=== PATIENT | male | born 1990 | race Caucasian/White ===

== ENCOUNTER 2021-12-17 15:13 | Emergency (ER) | payer MEDICARE, OTHER ==
[~2021-12-17] VITALS: Ht 180.3 cm; Wt 74.0 kg
[2021-12-17 15:30] VITALS: BP 140/77
[2021-12-17] MEDS ORDERED: OLANZapine 5 MG ODT (ZyPREXA ZYDIS) PO STA (15:34)
[2021-12-17] MEDS ORDERED: NS IV 1000 ML 1,000 ML IV SCH (15:45)
[2021-12-17 15:48] LABS: BILIRUBIN,URINE NEGATIVE (NEGATIVE); CLARITY,URINE CLEAR; COLOR,URINE YELLOW; GLUCOSE, URINE (UA) NEGATIVE (NEGATIVE); KETONES,URINE NEGATIVE (NEGATIVE); LEUKOCYTE ESTERASE ,URINE NEGATIVE (NEGATIVE); NITRITE,URINE NEGATIVE (NEGATIVE); PROTEIN,URINE NEGATIVE (NEGATIVE)
[2021-12-17 15:49] LABS: HEMATOCRIT 39 % (40-54); HEMOGLOBIN 12.7 g/dL (13.3-17.7); MEAN CORPUSCULAR HEMOGLOBIN 29 pg (25-34); MEAN CORPUSCULAR HGB CONC 32 g/dL (32-36); MEAN CORPUSCULAR VOLUME 90 fL (80-99); WHITE BLOOD COUNT 7.1 10^3/uL (4.3-11.0)
[2021-12-17 15:50] LABS: BASOPHILS % (AUTO) 0 % (0-10); EOSINOPHILS # (AUTO) 0.2 10^3/uL (0.0-0.3); EOSINOPHILS % (AUTO) 2 % (0-10); LYMPHOCYTES % (AUTO) 28 % (12-44); MEAN PLATELET VOLUME 9.9 fL (9.0-12.2); MONOCYTES # (AUTO) 0.4 X 10^3 (0.0-1.0); MONOCYTES % (AUTO) 6 % (0-12); NEUTROPHILS # (AUTO) 4.5 X 10^3 (1.8-7.8); NEUTROPHILS % (AUTO) 63 % (42-75); PLATELET COUNT 248 10^3/uL (130-400)
[2021-12-17 15:54] LABS: BACTERIA,URINE TRACE /HPF; SQUAMOUS EPITHELIAL CELL,UR RARE /HPF; WBC,URINE 0-2 /HPF
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
[2021-12-17 15:59] LABS: AMPHETAMINE SCREEN, URINE POSITIVE (NEGATIVE); BARBITURATE SCREEN URINE NEGATIVE (NEGATIVE); BENZODIAZEPINES SCREEN URINE NEGATIVE (NEGATIVE); CANNABINOID SCREEN, URINE NEGATIVE (NEGATIVE); COCAINE SCREEN URINE NEGATIVE (NEGATIVE); METHADONE STAT NEGATIVE (NEGATIVE); OPIATE SCREEN URINE NEGATIVE (NEGATIVE); OXYCODONE STAT NEGATIVE (NEGATIVE); PROPOXYPHENE STAT NEGATIVE (NEGATIVE); TRICYCLIC ANTIDEPRESSANTS SCRE NEGATIVE (NEGATIVE)
[2021-12-17 16:10] LABS: CHLORIDE 108 MMOL/L (98-107); POTASSIUM 3.3 MMOL/L (3.6-5.0); SODIUM 143 MMOL/L (135-145)
[2021-12-17 16:11] LABS: ACETAMINOPHEN < 10 UG/ML (10-30); ALANINE AMINOTRANSFERASE 14 U/L (0-55); ALKALINE PHOSPHATASE 116 U/L (40-136); BILIRUBIN,TOTAL < 0.2 MG/DL (0.1-1.0); BUN/CREATININE RATIO 25; CALCIUM 9.2 MG/DL (8.5-10.1); CARBON DIOXIDE 21 MMOL/L (21-32); CREATININE SERUM 0.69 MG/DL (0.60-1.30); GFR ESTIMATED 125; GLUCOSE 107 MG/DL (70-105); SALICYLATE 0.4 MG/DL (5.0-20.0); TOTAL PROTEIN 7.7 GM/DL (6.4-8.2)
== END 2021-12-17 19:52 | disposition home or self-care (01) ==
LOC: ER FS 15:15
DX: R45.851 Suicidal ideations (principal); F15.10 Other stimulant abuse, uncomplicated; G62.89 Other specified polyneuropathies; Z87.820 Personal history of traumatic brain injury; Z79.899 Other long term (current) drug therapy; Z20.822 Contact with and (suspected) exposure to COVID-19
CPT/HCPCS: 36415; 80053; 80306; 81000; 85025; 87636; 99284; G0480 ×3; 80320; 80329

== ENCOUNTER 2021-12-18 00:35 | Emergency (ER) | payer MEDICARE ==
[~2021-12-18] VITALS: Ht 180 cm; Wt 79.0 kg
[2021-12-18 01:06] LABS: BASOPHILS # (AUTO) 0.1 10^3/uL (0.0-0.1); BASOPHILS % (AUTO) 1 % (0-10); EOSINOPHILS # (AUTO) 0.2 10^3/uL (0.0-0.3); EOSINOPHILS % (AUTO) 3 % (0-10); HEMATOCRIT 36 % (40-54); HEMOGLOBIN 11.7 g/dL (13.3-17.7); LYMPHOCYTES # (AUTO) 2.6 10^3/uL (1.0-4.0); LYMPHOCYTES % (AUTO) 31 % (12-44); MEAN CORPUSCULAR HEMOGLOBIN 29 pg (25-34); MEAN CORPUSCULAR HGB CONC 33 g/dL (32-36); MEAN CORPUSCULAR VOLUME 89 fL (80-99); MEAN PLATELET VOLUME 9.1 fL (9.0-12.2); MONOCYTES # (AUTO) 0.6 10^3/uL (0.0-1.0); MONOCYTES % (AUTO) 7 % (0-12); NEUTROPHILS # (AUTO) 4.9 10^3/uL (1.8-7.8); NEUTROPHILS % (AUTO) 59 % (42-75); PLATELET COUNT 315 10^3/uL (130-400); WHITE BLOOD COUNT 8.4 10^3/uL (4.3-11.0)
[2021-12-18] MEDS ORDERED: HYDROmorphone 2 MG/ML VIAL (DILAUDID) IM STA ×2 (01:06→01:54)
[2021-12-18] MEDS ORDERED: HALOPERIDOL 5 MG/ML (HALDOL) VIAL IM STA (01:06)
[2021-12-18] MEDS ORDERED: LORazepam INJ 2 MG/ML (ATIVAN) VIAL IM STA ×2 (01:06→01:54)
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
[2021-12-18 01:26] LABS: BILIRUBIN,URINE NEGATIVE (NEGATIVE); CLARITY,URINE CLEAR; COLOR,URINE YELLOW; GLUCOSE, URINE (UA) NEGATIVE (NEGATIVE); KETONES,URINE NEGATIVE (NEGATIVE); LEUKOCYTE ESTERASE ,URINE NEGATIVE (NEGATIVE); NITRITE,URINE NEGATIVE (NEGATIVE); PROTEIN,URINE NEGATIVE (NEGATIVE)
[2021-12-18 01:26] LABS: ALANINE AMINOTRANSFERASE 15 U/L (0-55); ALBUMIN 3.8 GM/DL (3.2-4.5); ALKALINE PHOSPHATASE 114 U/L (40-136); BILIRUBIN,TOTAL < 0.2 MG/DL (0.1-1.0); BUN/CREATININE RATIO 18; CALCIUM 9.1 MG/DL (8.5-10.1); CARBON DIOXIDE 21 MMOL/L (21-32); CHLORIDE 110 MMOL/L (98-107); CREATININE SERUM 0.74 MG/DL (0.60-1.30); GFR ESTIMATED 123; GLUCOSE 115 MG/DL (70-105); POTASSIUM 3.1 MMOL/L (3.6-5.0); SALICYLATE < 0.3 MG/DL (5.0-20.0); SODIUM 144 MMOL/L (135-145); TOTAL PROTEIN 7.1 GM/DL (6.4-8.2)
[2021-12-18 01:27] LABS: ACETAMINOPHEN 66 UG/ML (10-30)
[2021-12-18 01:32] LABS: RBC,URINE 0-2 /HPF
[2021-12-18 01:33] LABS: BACTERIA,URINE NEGATIVE /HPF
[2021-12-18 01:38] LABS: AMPHETAMINE SCREEN, URINE POSITIVE (NEGATIVE); BARBITURATE SCREEN URINE NEGATIVE (NEGATIVE); BENZODIAZEPINES SCREEN URINE NEGATIVE (NEGATIVE); CANNABINOID SCREEN, URINE NEGATIVE (NEGATIVE); COCAINE SCREEN URINE NEGATIVE (NEGATIVE); METHADONE STAT NEGATIVE (NEGATIVE); OPIATE SCREEN URINE NEGATIVE (NEGATIVE); OXYCODONE STAT NEGATIVE (NEGATIVE); PROPOXYPHENE STAT NEGATIVE (NEGATIVE); TRICYCLIC ANTIDEPRESSANTS SCRE NEGATIVE (NEGATIVE)
[2021-12-18] MEDS ORDERED: OLANZapine 5 MG ODT (ZyPREXA ZYDIS) PO PRN (07:30)
[2021-12-18] MEDS ORDERED: LORazepam 0.5 MG (ATIVAN) TABLET PO PRN ×2 (07:30→12:30)
[2021-12-18] MEDS ORDERED: cloNIDine 0.1 MG (CATAPRES) TAB PO STA (12:24)
[2021-12-18] MEDS ORDERED: GABAPENTIN 100 MG (NEURONTIN) CAP PO STA (12:24)
[2021-12-18] MEDS ORDERED: HALOPERIDOL 5 MG/ML (HALDOL) VIAL IM ONE (14:45)
[2021-12-18] MEDS ORDERED: diphenhydrAMINE 50 MG/ML INJ (BENADRYL) IM ONE (14:45)
[2021-12-18] MEDS ORDERED: ERYTHROMYCIN OPHTH OINT 1 GM (SINGLE USE) TUBE OP STA (18:13)
[2021-12-18] MEDS ORDERED: diphenhydrAMINE 50 MG/ML INJ (BENADRYL) IM PRN (22:45)
[2021-12-18] MEDS ORDERED: LORazepam INJ 2 MG/ML (ATIVAN) VIAL IM PRN (22:45)
[2021-12-19] MEDS ORDERED: ERYTHROMYCIN OPHTH OINT 1 GM (SINGLE USE) TUBE ONE (08:42)
[2021-12-19] MEDS ORDERED: LORazepam INJ 2 MG/ML (ATIVAN) VIAL IM STA (10:16)
[2021-12-19] MEDS ORDERED: diphenhydrAMINE 50 MG/ML INJ (BENADRYL) IM ONE (10:30)
[2021-12-19] MEDS ORDERED: DIPHENOXYLATE/ATROPINE 2.5MG/0.025MG (LOMOTIL) TAB PO SCH (17:45)
[2021-12-20] MEDS: GABAPENTIN 100 MG (NEURONTIN) CAP PO SCH ×2 (08:09→13:09)
[2021-12-20] MEDS ORDERED: cloNIDine 0.1 MG (CATAPRES) TAB PO SCH (09:00)
--- NOTE | 2021-12-20 09:42 | Diagnostic Imaging Report ---
History: Evaluation of the right foot TECHNIQUE: 3 views of the right foot COMPARISON: None FINDINGS: There is deformity of the 4th and 5th metatarsals. There is mild hallux valgus. Alignment otherwise appears normal. There are mild degenerative changes in the midfoot. No cortical erosions are seen. No acute fracture is identified. There is moderate soft tissue swelling about the right foot. IMPRESSION: 1. Moderate soft tissue swelling about the right foot. No cortical erosion is seen. 2. Mild posttraumatic deformity of the 4th and 5th metatarsals. Dictated by: Dictated on workstation # [id number]
[2021-12-20 13:30] VITALS: BP 136/81
== END 2021-12-20 13:30 ==
LOC: EDUNIT# 00:35 → ER FS 00:36
DX: F32.A Depression, unspecified (principal); R45.851 Suicidal ideations; F15.10 Other stimulant abuse, uncomplicated; G89.29 Other chronic pain; M79.661 Pain in right lower leg; H57.89 Other specified disorders of eye and adnexa; H57.11 Ocular pain, right eye; H54.7 Unspecified visual loss; Z87.828 Personal history of other (healed) physical injury and trauma; Z98.890 Other specified postprocedural states; W22.8XXA Striking against or struck by other objects, initial encounter; Y92.039 Unspecified place in apartment as the place of occurrence of the external cause
CPT/HCPCS: 36415; 80053; 80306; 81000; 85025; 99282; G0480 ×3; 73630; 80320; 80329; 86141

== ENCOUNTER 2022-01-19 21:53 | Emergency (ER) | payer MEDICARE ==
[~2022-01-19] VITALS: Ht 180 cm; Wt 68.0 kg
[2022-01-19] MEDS ORDERED: morphine INJ 10 MG/ML 1ML (SYR OR VIAL) IVP STA (22:06)
[2022-01-19] MEDS ORDERED: ONDANSETRON 4 MG (ZOFRAN) ORAL DISSOLVE TAB PO STA (22:06)
[2022-01-19] MEDS ORDERED: LIDOCAINE 1% INJ 50 ML (XYLOCAINE) VIAL ONE (22:12)
[2022-01-19] MEDS ORDERED: CEPHALEXIN 250 MG (KEFLEX) CAP PO SCH (22:15)
[2022-01-19] MEDS ORDERED: LIDOCAINE 1% INJ 20 ML VIAL INJ ONE (22:15)
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
[2022-01-19] MEDS ORDERED: CEPH500T PO (23:17)
[2022-01-19] MEDS ORDERED: ACHD5005 PO (23:17)
[2022-01-19 23:57] VITALS: BP 132/89
--- NOTE | 2022-01-20 06:28 | Diagnostic Imaging Report ---
Indication: Right foot pain 3 views of the right foot do not show any acute fracture or dislocation. IMPRESSION: No acute abnormality seen in the foot. There appears be an old healed fracture of the 5th metatarsal shaft. Dictated by: Dictated on workstation # [id number]
== END 2022-01-19 23:57 | disposition home or self-care (01) ==
LOC: EDUNIT# 21:53 → ER FS 21:55
DX: S01.412A Laceration without foreign body of left cheek and temporomandibular area, initial encounter (principal); S01.21XA Laceration without foreign body of nose, initial encounter; G89.29 Other chronic pain; M79.671 Pain in right foot; Z87.820 Personal history of traumatic brain injury; Z87.828 Personal history of other (healed) physical injury and trauma; Z98.890 Other specified postprocedural states; V86.06XA Driver of dirt bike or motor/cross bike injured in traffic accident, initial encounter
CPT/HCPCS: 12014; 73630

== ENCOUNTER 2022-02-01 17:43 | Emergency (ER) | payer MEDICARE ==
[~2022-02-01] VITALS: Ht 182.9 cm; Wt 66.2 kg
[~2022-02-01 17:43] MED LIST: ACHD5005 PO; CEPH500T PO
[2022-02-01 17:44] VITALS: BP 127/68
== END 2022-02-01 17:52 | disposition home or self-care (01) ==
LOC: EDUNIT# 17:43 → ER FS 17:44
DX: Z48.02 Encounter for removal of sutures (principal)

== ENCOUNTER → 2022-03-10 | Outpatient (CLI) | payer MEDICARE ==
--- NOTE | 2022-03-10 15:53 | Diagnostic Imaging Report ---
INDICATION: Pain in right knee. COMPARISON: None. FINDINGS: Three views of the right knee joint demonstrate no acute fracture or dislocation. No focal osseous lesions are seen. No significant joint effusion is seen. The surrounding soft tissue structures are unremarkable. There are no radiopaque foreign bodies. IMPRESSION: No acute fractures or dislocations of the right knee joint. Dictated by: Dictated on workstation # [id number]
== END ==
LOC: RAD FS 15:11
PROVIDERS: ATTEND Emergency Medicine
DX: M25.561 Pain in right knee (principal)
CPT/HCPCS: 73562